=== PATIENT | male | born 1965 | race African-American/Black ===

== ENCOUNTER 2020-10-25 14:39 | Inpatient (IN) | payer MEDICAID ==
[~2020-10-25] VITALS: Ht 170.2 cm; Wt 81.2 kg
[2020-10-25] MEDS ORDERED: ONDANSETRON HCL/PF 4 MG/2 ML VIAL ONE (14:47)
--- NOTE | 2020-10-25 14:56 | NUR ---
BIBRA99, PER EMS, NOTICE SEIZURE LIKE ACTIVITY WHILE DRIVING. +NAUSEA RIPPER OPERATOR VERBALLY RESPONSIVE, AWAKE RIPPER OPERATOR. BG 208 RIPPER OPERATOR. PT AAOX4, VSS. RR EVEN & UNLABORED. DENIES CP, SOB, DIZZINESS, PRETTY AT THIS TIME. PT SEEN & EVAL'D BY DR. KATE. MEDICATED ORDERED, PT BRIAN WELL. PLACED ON SEIZURE PRECAUTION & WILL CONT TO MONITOR.
[2020-10-25] MEDS ORDERED: ONDANSETRON HCL/PF 4 MG/2 ML VIAL IVP ONE (15:00)
[2020-10-25] MEDS ORDERED: IV NS 0.9% 1,000 ML BAG IV ONE (15:00)
[2020-10-25 15:25] LABS: BASOPHILS % (AUTO) 0.5 % (0.0-2.0); EOSINOPHILS % (AUTO) 0.1 % (0.0-6.0); HEMATOCRIT 34 % (39-51); HEMOGLOBIN 11.3 g/dL (13.5-17.5); LYMPHOCYTES # (AUTO) 0.5 /CMM (0.8-4.8); LYMPHOCYTES % (AUTO) 7.4 % (20.0-44.0); MEAN CORPUSCULAR HGB CONC 34 g/dl (31.0-36.0); MEAN CORPUSCULAR VOLUME 88 fL (80-96); MONOCYTES # (AUTO) 1.2 /CMM (0.1-1.30); MONOCYTES % (AUTO) 19.2 % (2.0-12.0); NEUTROPHILS # (AUTO) 4.4 /CMM (1.8-8.9); NEUTROPHILS % (AUTO) 72.8 % (43.0-81.0); PLATELET COUNT (AUTO) 151 /CMM (150-450); RED BLOOD CELL COUNT(AUTO) 3.84 MIL/uL (4.5-6.0)
[2020-10-25 15:41] LABS: ALANINE AMINOTRANSFERASE 83 U/L (12-78); ALBUMIN 3.6 g/dL (3.4-5.0); ALCOHOL, BLOOD < 3 mg/dL (0-0); ALKALINE PHOSPHATASE 66 U/L (46-116); ASPARTATE AMINOTRANSFERASE 114 U/L (15-37); BILIRUBIN,DIRECT 0.5 mg/dL (0.0-0.2); BILIRUBIN,TOTAL 1.2 mg/dL (0.2-1.0); CALCIUM, SERUM 9.1 mg/dL (8.5-10.1); CARBON DIOXIDE 29 mmol/L (21-32); CHLORIDE 81 mmol/L (98-107); CREATININE 4.7 mg/dL (0.6-1.3); GLUCOSE 246 mg/dL (74-106); SODIUM SERUM 126 mmol/L (136-145); TOTAL PROTEIN, SERUM 7.4 g/dL (6.4-8.2); UREA NITROGEN, BLOOD 34 mg/dL (7-18)
[2020-10-25 15:43] LABS: POTASSIUM 2.6 mmol/L (3.5-5.1)
[2020-10-25] MEDS ORDERED: POTASSIUM CHLORIDE 20 MEQ TAB.PRT.SR PO ONE ×2 (16:00→16:08)
[2020-10-25] MEDS ORDERED: IV NS 0.9% 500 ML BAG IV ONE (16:00)
[2020-10-25 16:08] LABS: BAND % (MANUAL) 4 % (0.0-5.0); LYMPHOCYTES % (MANUAL) 14 % (16-48); MONOCYTES % (MANUAL) 15 % (0-11.0); NEUTROPHILS % (MANUAL) 67 (42-76)
--- NOTE | 2020-10-25 16:11 | NUR ---
PAGED DR. ASHISH BOWERS.
--- NOTE | 2020-10-25 16:15 | NUR ---
NURSING SUP GAVE [phone] TELE.
--- NOTE | 2020-10-25 16:16 | NUR ---
Covid swab done and taken it to the lab.
--- NOTE | 2020-10-25 16:23 | NUR ---
PT AAOX4, RR EVEN & UNLABORED. DENIES ANY DISCOMFORT AT THIS TIME. WILL CONT TO MONITOR.
[2020-10-25] MEDS ORDERED: Z GUARD REMEDY 2 OZ OINT TP PRN (16:30)
[2020-10-25] MEDS ORDERED: ONDANSETRON HCL/PF 4 MG/2 ML VIAL IVP PRN (16:30)
[2020-10-25] MEDS ORDERED: DEXTROSE 50%-WATER 50 ML DISP.SYRIN IV PRN (16:30)
[2020-10-25] MEDS ORDERED: IV 1/2NS 1000 ML 1,000 ML IV PRN (16:30)
[2020-10-25] MEDS ORDERED: ACETAMINOPHEN 325 MG TABLET PO PRN (16:30)
[2020-10-25] MEDS ORDERED: ZOLPIDEM TARTRATE 5 MG TABLET PO PRN (16:30)
--- NOTE | 2020-10-25 16:35 | NUR ---
REPORT GIVEN TO KORIN MCKEON. PT AWAITING TRANSFER TO FLOOR
[2020-10-25] MEDS ORDERED: ATOR40TA PO (17:20)
[2020-10-25] MEDS ORDERED: LOSA50TA39 PO (17:20)
[2020-10-25] MEDS ORDERED: CLON1TAB23 PO (17:20)
[2020-10-25] MEDS ORDERED: BUSPAR (17:20)
[2020-10-25] MEDS ORDERED: ESCI10TA PO (17:20)
--- NOTE | 2020-10-25 17:20 | NUR ---
CONCRETE BATCHING PLANT OPERATORPROCESS DEVELOPMENT CHEMIST NOTE PT ARRIVED ON UNIT VIA GURNEY ACCOMPANIED BY 2 ER NURSES. PT IS A/O X4, TAMAZIGHT SPEAKING, VERBAL, ABLE TO MAKE NEEDS KNOWN WITH NO C/O PAIN OR S/SX OF ACUTE DISTRESS AT THIS TIME. PT IS ON ROOM AIR WITH NO S/SX OF RESPIRATORY DISTRESS. PT'S TELE MONITOR SHOWS SINUS TACHY AT 105 BPM, BUT IN NO APPARENT CARDIAC DISTRESS. PT C/O HICCUPS, CALLED TO DR. GUTIERREZ WITH ORDERS TO ADMINISTER ZOFRAN IVP PRN, CARRIED OUT. ORIENTED TO UNIT AND ROOM, WITH SUCCESSFUL RETURN DEMONSTRATION AND VERBALIZATION OF UNDERSTANDING. SAFETY MEASURES IN PLACE: BED IN LOWEST, LOCKED POSITION WITH BOTH UPPER SIDE RAILS UP X2. CALL LIGHT PLACED WITHIN REACH. EDUCATED ON IMPORTANCE OF USING CALL LIGHT. WILL CONTINUE TO MONITOR.
[2020-10-25] MEDS: BLOOD SUGAR DIAGNOSTIC 1 EACH STRIP IN SCH ×2 (17:54→21:45)
[2020-10-25 18:00] VITALS: BP 131/81
[2020-10-25] MEDS: INSULIN REGULAR, HUMAN 100 UNIT/ML 3 ML VIAL SQ PRN ×2 (18:25→21:46)
--- NOTE | 2020-10-25 19:08 | NUR ---
MACHINE HEEL SEAT LASTER CLOSING NOTE PT IS IN ROOM, AWAKE, RESPONSIVE. PT IS A/O X4, SINHALA SPEAKING, VERBAL, ABLE TO MAKE NEEDS KNOWN WITH NO C/O PAIN OR S/SX OF ACUTE DISTRESS AT THIS TIME. PT IS ON ROOM AIR WITH NO S/SX OF RESPIRATORY DISTRESS. PT'S TELE MONITOR SHOWS SINUS TACHY AT 100 BPM, BUT IN NO APPARENT CARDIAC DISTRESS. SAFETY MEASURES MAINTAINED: BED IN LOWEST POSITION AND LOCKED WITH BOTH UPPER SIDE RAILS UP X2. CALL LIGHT PLACED WITHIN REACH. WILL ENDORSE TO CONTACT CENTER ENGINEER NURSE.
[2020-10-25 20:00] VITALS: BP 133/66
--- NOTE | 2020-10-25 20:00 | NUR ---
CONSTRUCTION LABORER NOTE PT IN BED AWAKE. A/O X 4, NO SOB, NO DISTRESS OR DISCOMFORT NOTED. DENIES PAIN. IVF 1/2 NS INFUSING AT 75 ML/HR, NO S/S OF INFILTRATION NOTED. RT HAND G #20. ON TELE SR HR 98. SIDE RAILS UP X 2 AND CALL LIGHT WITHIN REACH. VSS. CONTINUE TO MONITOR HIM.
[2020-10-25 22:50] LABS: BILIRUBIN,URINE MODERATE (NEGATIVE); COLOR,URINE YELLOW (YELLOW); LEUKOCYTE ESTERASE ,URINE NEGATIVE (NEGATIVE); NITRITE, URINE NEGATIVE (NEGATIVE); PROTEIN,URINE 30 mg/dl (NEGATIVE); UGLUCOSE NEGATIVE (NEGATIVE); UROBILINOGEN,URINE 0.2 EU/dL (0.2)
[2020-10-25 23:02] LABS: ALBUMIN 3.1 g/dL (3.4-5.0); CALCIUM, SERUM 8.3 mg/dL (8.5-10.1); CREATININE 3.6 mg/dL (0.6-1.3); TOTAL PROTEIN, SERUM 6.6 g/dL (6.4-8.2)
[2020-10-25 23:03] LABS: CREATININE, URINE 121.2 MG/DL (30.0-125.0); URINE TOTAL PROTEIN 70.7 mg/dL (0-11.9)
[2020-10-25 23:12] LABS: POTASSIUM 2.3 mmol/L (3.5-5.1)
[2020-10-25 23:57] LABS: BACTERIA,URINE None seen /HPF (None Seen); RBC,URINE 0-2 /HPF (0-2); SQUAMOUS EPITHELIAL CELL,UR Few /HPF (None Seen); WBC,URINE 0-2 /HPF (0-3)
[2020-10-26] VITALS (7 sets, daily range): BP systolic 126–172; BP diastolic 72–98
--- NOTE | 2020-10-26 03:00 | NUR ---
GIS GEOGRAPHER NOTE NOTED K 2.3 AND NA 129 LEVEL, INFORMED DNP JOCE CARMEN, RECEIVED NEW ORDERS, ORDERS NOTED AND CARRIED OUT.
[2020-10-26] MEDS ORDERED: Potassium Chloride 40 MEQ in IV NS 0.9% 1,000 ML IV PRN (03:30)
[2020-10-26] MEDS ORDERED: POTASSIUM CHLORIDE 10 MEQ/50 ML PREMIXED IVPB FOR PERIPHERAL LINE IV ONE (03:30)
[2020-10-26] MEDS: POTASSIUM CL. PREMIX PERIPHER. 50 ML IV SCH ×4 (03:42→07:44)
[2020-10-26] MEDS ORDERED: IV PREMIX NS +20MEQ KCL 1 L IV ONE (05:16)
[2020-10-26] MEDS: Potassium Chloride 20 MEQ in IV NS 0.9% 1,000 ML IV PRN ×2 (05:24→21:53)
[2020-10-26 05:58] LABS: BASOPHILS % (AUTO) 0.5 % (0.0-2.0); EOSINOPHILS % (AUTO) 0.5 % (0.0-6.0); HEMATOCRIT 34 % (39-51); HEMOGLOBIN 11.6 g/dL (13.5-17.5); LYMPHOCYTES # (AUTO) 0.5 /CMM (0.8-4.8); LYMPHOCYTES % (AUTO) 11.1 % (20.0-44.0); MEAN CORPUSCULAR HGB CONC 34 g/dl (31.0-36.0); MEAN CORPUSCULAR VOLUME 88 fL (80-96); MONOCYTES % (AUTO) 20.5 % (2.0-12.0); NEUTROPHILS # (AUTO) 3.3 /CMM (1.8-8.9); NEUTROPHILS % (AUTO) 67.4 % (43.0-81.0); PLATELET COUNT (AUTO) 180 /CMM (150-450); RED BLOOD CELL COUNT(AUTO) 3.93 MIL/uL (4.5-6.0); WHITE BLOOD COUNT (AUTO) 4.9 K/uL (4.3-11.0)
[2020-10-26] MEDS: BLOOD SUGAR DIAGNOSTIC 1 EACH STRIP IN SCH ×4 (06:20→21:45)
[2020-10-26] MEDS: INSULIN REGULAR, HUMAN 100 UNIT/ML 3 ML VIAL SQ PRN ×4 (06:22→21:50)
--- NOTE | 2020-10-26 06:31 | NUR ---
FEATHER MIXER NOTE PT IN BED ASLEEP, EASILY AROUSABLE, NO DISTRESS OR DISCOMFORT NOTED. DENIES PAIN. IVF NS WITH 20 MEQ KCL INFUSING WELL. NO S/S OF INFILTRATION NOTED. ALSO INFUSING 10 MEQ KCL IVP ORDERED. SIDE RAILS UP X 2 AND CALL LIGHT WITHIN REACH. WILL ENDORSE TO DAY SHIFT NURSE FOR CONTINUE TO CARE.
[2020-10-26 06:55] LABS: ALBUMIN 2.9 g/dL (3.4-5.0); BILIRUBIN,TOTAL 0.9 mg/dL (0.2-1.0); CALCIUM, SERUM 7.8 mg/dL (8.5-10.1); CREATININE 2.9 mg/dL (0.6-1.3); MAGNESIUM 1.4 mg/dL (1.8-2.4); PHOSPHORUS 3.8 mg/dL (2.5-4.9); TOTAL PROTEIN, SERUM 6.5 g/dL (6.4-8.2)
[2020-10-26 06:56] LABS: THYROID STIMULATING HORMONE 0.277 uIU/mL (0.358-3.74)
--- NOTE | 2020-10-26 07:05 | NUR ---
UNIT MANAGER RN NOTE RECEIVED PATIENT AWAKE IN BED. A/O X4. PT STABLE ON ROOM AIR. NO SOB NOTED. NO S/S OF RESPIRATORY DISTRESS. PATIENT IS AMBULATORY WITH BRP. PATIENT HAS NO C/O PAIN AT THIS TIME. IV ACCESS ON LEFT AC 22G, NS WITH 20 MEQ KCL INFUSING WELL. IV IS INTACT AND PATENT. SAFETY MEASURES MAINTAINED. BED IN LOWEST LOCKED POSITION. SIDE RAILS UP X2. CALL LIGHT AND TABLE WITHIN REACH. WILL CONTINUE WITH PLAN OF CARE.
[2020-10-26 07:08] LABS: POTASSIUM 2.6 mmol/L (3.5-5.1)
[2020-10-26] MEDS: PANTOPRAZOLE 40 MG TABLET.DR PO SCH (07:43)
[2020-10-26 08:17] LABS: EOSINOPHILS % (MANUAL) 1 % (0-4); LYMPHOCYTES % (MANUAL) 10 % (16-48); MONOCYTES % (MANUAL) 16 % (0-11.0); NEUTROPHILS % (MANUAL) 73 (42-76)
[2020-10-26] MEDS ORDERED: Magnesium 1GM/D5W 100ML PREMIX 100 ML IV SCH (09:30)
[2020-10-26] MEDS: HYDROCODONE/APAP 5/325MG TABLET PO PRN ×2 (13:34→20:42)
--- NOTE | 2020-10-26 13:34 | NUR ---
PATIENT C/O TIGHTNESS IN THE BACK OF THE NECK, RATED 6/10 ON PAIN SCALE. PATIENT WAS GRASPING SITE AND HAD FACIAL GRIMACING. VS BP 154/90, HR 87, RR 18, TEMP 98.7, O2 SAT 99%. PER PATIENT REQUEST, ADMINISTERED NORCO 3-325 MG PO Q4H PRN AT THIS TIME. WILL CONTINUE TO MONITOR.
--- NOTE | 2020-10-26 18:26 | NUR ---
AVIATION TECHNICIAN AIRCRAFT CLOSING NOTE PATIENT IS AWAKE IN BED AT THIS TIME. PATIENT REMAINED STABLE THROUGHOUT SHIFT. ALL CARE, NEEDS, MEDICATIONS, AND TREATMENT ADMINISTERED ANTICIPATED PER ORDER. PATIENT KEPT CLEAN AND DRY. PAIN MANAGEMENT ADMINISTERED PER ORDER. SAFETY, SEIZURE, AND ASPIRATION PRECAUTIONS MAINTAINED AT ALL TIMES. BED IN LOWEST LOCKED POSITION WITH BED ALARM ON, SIDE RAILS PADDED AND UP X2. HOB ELEVATED. CALL LIGHT AND TABLE WITHIN REACH. WILL ENDORSE TO PAYROLL ACCOUNTANT NURSE FOR KARMEN.
--- NOTE | 2020-10-26 19:30 | NUR ---
EQUAL OPPORTUNITY REPRESENTATIVE OPENING NOTE RECEIVED PATIENT IN BED. A/OX4. TOLERATING ROOM AIR. RESPIRATIONS ARE EVEN AND UNLABORED. NO S/S SOB NOTED. NO C/O PAIN AT THIS TIME. EXTERNAL TELE MONITOR READS SINUS RHYTHM HR 87. IN NO APPARENT DISTRESS. IV ACCESS IN LAC#22 RUNNING 20MEQ POTASSIUM WITH NS@75ML/HR. BED IS LOW AND LOCKED, HOB ELEVATED IN HIGH FOWLERS, SIDE RIALS UP X2, CALL LIGHT WITHIN REACH. BED ALARM ON. WILL CONTINUE TO MONITOR THROUGHOUT SHIFT.
--- NOTE | 2020-10-26 20:00 | NUR ---
telecommunications network planner note informed air traffic control manager MD Dr. nikhil etienne to review patients med recon. stated yes. will monitor.
--- NOTE | 2020-10-26 20:35 | NUR ---
telephone interceptor operator note INFORMED DR. JOCE CARMEN THAT PATIENT BP IS 172/98. NO PRN ORDERS. PATIENTS MED RECON STATES LOSARTAN 50MG PO DAILY. TELEPHONE ORDER OK TO RESTART. ORDER READ BACK NOTED AND CARRIED OUT.
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
[2020-10-26] MEDS: LOSARTAN POTASSIUM 50 MG TABLET PO SCH (21:44)
[2020-10-27] VITALS: BP 134/82
[2020-10-27 04:00] VITALS: BP 149/93
[2020-10-27] MEDS: BLOOD SUGAR DIAGNOSTIC 1 EACH STRIP IN SCH ×5 (06:16→21:39)
[2020-10-27] MEDS: INSULIN REGULAR, HUMAN 100 UNIT/ML 3 ML VIAL SQ PRN ×3 (06:17→17:50)
[2020-10-27 06:39] LABS: EOSINOPHILS % (AUTO) 2.2 % (0.0-6.0); HEMATOCRIT 35 % (39-51); HEMOGLOBIN 11.7 g/dL (13.5-17.5); LYMPHOCYTES # (AUTO) 0.7 /CMM (0.8-4.8); LYMPHOCYTES % (AUTO) 18.2 % (20.0-44.0); MEAN CORPUSCULAR HGB CONC 33 g/dl (31.0-36.0); MEAN CORPUSCULAR VOLUME 89 fL (80-96); MONOCYTES # (AUTO) 0.9 /CMM (0.1-1.30); MONOCYTES % (AUTO) 22.9 % (2.0-12.0); NEUTROPHILS # (AUTO) 2.2 /CMM (1.8-8.9); NEUTROPHILS % (AUTO) 55.7 % (43.0-81.0); PLATELET COUNT (AUTO) 224 /CMM (150-450); RED BLOOD CELL COUNT(AUTO) 3.96 MIL/uL (4.5-6.0)
--- NOTE | 2020-10-27 06:41 | NUR ---
SEAFOOD TEAM MEMBER CLOSING NOTE PATIENT RESTING IN BED. A/OX4. REMAINS TOLERATING ROOM AIR. NO RESP DISTRESS. NO C/O PAIN. TELE MONITOR READS SINUS RHYTHM. NO DISTRESS. IV ACCESS MAINTAINED IN LAC#22 RUNNING 20MEQ POTASSIUM WITH NS@75ML/HR. BED REMAINS LOW AND LOCKED, HOB ELEVATED IN HIGH FOWLERS, SIDE RIALS UP X2, CALL LIGHT WITHIN REACH. BED ALARM ON. WILL ENDORSE TO ONCOMING SHIFT.
[2020-10-27 07:22] LABS: ALBUMIN 2.8 g/dL (3.4-5.0); BILIRUBIN,TOTAL 0.8 mg/dL (0.2-1.0); CALCIUM, SERUM 7.8 mg/dL (8.5-10.1); CREATININE 1.7 mg/dL (0.6-1.3); MAGNESIUM 1.5 mg/dL (1.8-2.4); PHOSPHORUS 2.7 mg/dL (2.5-4.9); POTASSIUM 2.9 mmol/L (3.5-5.1); TOTAL PROTEIN, SERUM 6.5 g/dL (6.4-8.2)
--- NOTE | 2020-10-27 07:29 | NUR ---
BOILERMAKER FITTER OPENING NOTE RECEIVED PATIENT IN BED. A/OX4. TOLERATING ROOM AIR. RESPIRATIONS ARE EVEN AND UNLABORED. NO S/S SOB NOTED. NO C/O PAIN AT THIS TIME. EXTERNAL TELE MONITOR READS SINUS RHYTHM HR 87. IN NO APPARENT DISTRESS. IV ACCESS IN LAC#22 RUNNING 20MEQ POTASSIUM WITH NS@75ML/HR. BED IS LOW AND LOCKED, HOB ELEVATED IN HIGH FOWLERS, SIDE RIALS UP X2, CALL LIGHT WITHIN REACH. BED ALARM ON.
[2020-10-27 08:00] VITALS: BP 166/94
[2020-10-27] MEDS: PANTOPRAZOLE 40 MG TABLET.DR PO SCH (08:05)
[2020-10-27] MEDS: LOSARTAN POTASSIUM 50 MG TABLET PO SCH (08:05)
[2020-10-27] MEDS: HYDROCODONE/APAP 5/325MG TABLET PO PRN (08:24)
[2020-10-27 08:41] LABS: EOSINOPHILS % (MANUAL) 1 % (0-4); LYMPHOCYTES % (MANUAL) 20 % (16-48); MONOCYTES % (MANUAL) 19 % (0-11.0); NEUTROPHILS % (MANUAL) 60 (42-76)
--- NOTE | 2020-10-27 09:50 | NUR ---
RN NOTES PATIENT SEEN BY SYDNIE RODRIGUES TO D/C FROM TELE. WILL CONTINUE TO MONITOR.
[2020-10-27] MEDS ORDERED: Magnesium 1GM/D5W 100ML PREMIX 100 ML IV SCH (11:00)
[2020-10-27] MEDS: POTASSIUM CHLORIDE 20 MEQ TAB.PRT.SR PO SCH ×2 (11:06→12:06)
[2020-10-27] MEDS: AMLODIPINE BESYLATE 5 MG TABLET PO SCH (12:32)
[2020-10-27 16:00] VITALS: BP 158/83
--- NOTE | 2020-10-27 18:42 | NUR ---
CARAVAN PARK AND CAMPING GROUND MANAGER CLOSING NOTE PATIENT RESTING IN BED. A/OX4. REMAINS TOLERATING ROOM AIR. NO RESP DISTRESS. NO C/O PAIN. TELE MONITOR READS SINUS RHYTHM. NO DISTRESS. IV ACCESS MAINTAINED IN LAC#22 RUNNING 20MEQ POTASSIUM WITH NS@75ML/HR. BED REMAINS LOW AND LOCKED, HOB ELEVATED IN HIGH FOWLERS, SIDE RIALS UP X2, CALL LIGHT WITHIN REACH. BED ALARM ON.
--- NOTE | 2020-10-27 19:30 | NUR ---
TELE/RN OPENING NOTE RECEIVED PATIENT RESTING IN BED. AWAKE, ALERT AND ORIENTED X 4. ABLE TO MAKE NEEDS KNOWN. NO COMPLAINTS OF PAIN AT THIS TIME. RESPIRATIONS EVEN AND UNLABORED. IV ACCESS TO LEFT AC #22G INTACT AND PATENT. CONTINUES ON IV POTASSIUM 20MEQ IN 1,000ML NS @ 75ML/HR. URINE CX PENDING AT THIS TIME. CALL LIGHT WITHIN REACH. ASPIRATION, FALL AND SAFETY PRECAUTIONS MAINTAINED. WILL CONTINUE TO MONITOR.
[2020-10-27 20:00] VITALS: BP 168/96
[2020-10-27] MEDS ORDERED: IV PREMIX NS +20MEQ KCL 1 L IV ONE (21:12)
[2020-10-27] MEDS: Potassium Chloride 20 MEQ in IV NS 0.9% 1,000 ML IV PRN (21:27)
--- NOTE | 2020-10-27 22:00 | NUR ---
TELE/RN NOTE PATIENT REFUSED HS BLOOD GLUCOSE CHECK. STATES IT'S BEEN TAKEN TOO MANY TIMES AND DOESN'T NEED TO BE DONE AGAIN TONIGHT. EDUCATED PATIENT ON IMPORTANCE OF MONITORING GLUCOSE LEVEL WITH PATIENT CONTINUING TO REFUSE. WILL CONTINUE TO MONITOR.
--- NOTE | 2020-10-28 06:45 | NUR ---
MS/RN CLOSING NOTE PATIENT CURRENTLY RESTING IN BED. AWAKE, ALERT AND ORIENTED X 4. ABLE TO MAKE NEEDS KNOWN. NO COMPLAINTS OF PAIN AT THIS TIME. RESPIRATIONS EVEN AND UNLABORED. IV ACCESS TO LEFT AC #22G INTACT AND PATENT. CONTINUES ON IV POTASSIUM 20MEQ IN 1,000ML NS @ 75ML/HR. URINE CX PENDING AT THIS TIME. CALL LIGHT WITHIN REACH. ASPIRATION, FALL AND SAFETY PRECAUTIONS MAINTAINED. WILL ENDORSE PLAN OF CARE TO ONCOMING SHIFT.
[2020-10-28 06:54] LABS: BASOPHILS % (AUTO) 0.6 % (0.0-2.0); EOSINOPHILS % (AUTO) 1.8 % (0.0-6.0); HEMATOCRIT 38 % (39-51); HEMOGLOBIN 12.7 g/dL (13.5-17.5); LYMPHOCYTES # (AUTO) 0.8 /CMM (0.8-4.8); LYMPHOCYTES % (AUTO) 15.5 % (20.0-44.0); MEAN CORPUSCULAR HGB CONC 33 g/dl (31.0-36.0); MEAN CORPUSCULAR VOLUME 89 fL (80-96); MONOCYTES # (AUTO) 1.4 /CMM (0.1-1.30); MONOCYTES % (AUTO) 27.7 % (2.0-12.0); NEUTROPHILS # (AUTO) 2.8 /CMM (1.8-8.9); NEUTROPHILS % (AUTO) 54.4 % (43.0-81.0); PLATELET COUNT (AUTO) 304 /CMM (150-450); WHITE BLOOD COUNT (AUTO) 5.1 K/uL (4.3-11.0)
[2020-10-28] MEDS: INSULIN REGULAR, HUMAN 100 UNIT/ML 3 ML VIAL SQ PRN ×2 (07:07→11:15)
[2020-10-28] MEDS: BLOOD SUGAR DIAGNOSTIC 1 EACH STRIP IN SCH ×2 (07:14→11:15)
[2020-10-28 07:46] LABS: CALCIUM, SERUM 8.7 mg/dL (8.5-10.1); CREATININE 1.3 mg/dL (0.6-1.3); MAGNESIUM 1.5 mg/dL (1.8-2.4); PHOSPHORUS 2.1 mg/dL (2.5-4.9); POTASSIUM 3.4 mmol/L (3.5-5.1)
--- NOTE | 2020-10-28 07:53 | NUR ---
MS RN OPENING NOTE PT RECEIVED IN BED, AWAKE AND RESPONSIVE. PT IS A/O X 4, VERBAL, LATVIAN SPEAKING AND ABLE TO MAKE NEEDS KNOWN WITH NO C/O PAIN OR S/SX OF ACUTE DISTRESS AT THIS TIME. PT IS ON ROOM AIR WITH NO S/SX OF RESPIRATORY DISTRESS. PT HAS AN IV ACCESS ON LEFT FOREARM G#22, PATENT, INTACT AND FLUSHING WELL, RUNNING 20 MEQ K+ WITH NS AT 75 ML/HR, WITH NO S/SX OF INFECTION, INFILTRATION OR IRRITATION. PT IS AMBULATORY WITH STEADY GAIT AND IS ABLE TO GO TO THE BATHROOM INDEPENDENTLY. SAFETY MEASURES IN PLACE: BED IN LOWEST, LOCKED POSITION WITH BOTH UPPER SIDE RAILS UP X2. CALL LIGHT PLACED WITHIN REACH. WILL CONTINUE TO MONITOR.
[2020-10-28 08:00] VITALS: BP 173/96
[2020-10-28] MEDS: PANTOPRAZOLE 40 MG TABLET.DR PO SCH (08:05)
[2020-10-28 08:06] VITALS: BP 173/96
[2020-10-28] MEDS: LOSARTAN POTASSIUM 50 MG TABLET PO SCH (08:06)
[2020-10-28] MEDS: AMLODIPINE BESYLATE 5 MG TABLET PO SCH (08:06)
[2020-10-28] MEDS: HYDROCODONE/APAP 5/325MG TABLET PO PRN (08:09)
--- NOTE | 2020-10-28 08:15 | NUR ---
MS MCKEON NOTE: PAIN PT C/O ACHING LOWER NECK PAIN RATED 6/10. NORCO 5-325 1 TAB PO Q4H PRN GIVEN AT 08 PER PT'S REQUEST. WILL CONTINUE TO MONITOR. Addendum: 10/28/20 at 0910 by MIRIAM COATES RN REASSESSED PAIN AT 0909, 0/10.
--- NOTE | 2020-10-28 08:30 | NUR ---
MS RN NOTE: HTN PT NOTED WITH HIGH BP AT 173/96 WITH NO S/SX OF ACUTE DISTRESS. PT STATED "THAT'S NORMAL FOR ME." ROUTINE PO HTN MEDICATION LOSARTAN 50 MG PO QD AND AMLODIPINE 5 MG PO QD GIVEN TO PT AT 0800 ORDERED. RECHECKED BP AFTER 30 MINS AT 0830BP IS CURRENTLY 130/94 WITH NO S/SX OF ACUTE DISTRESS AT THIS TIME. WILL CONTINUE TO MONITOR.
[2020-10-28 09:23] LABS: EOSINOPHILS % (MANUAL) 1 % (0-4); LYMPHOCYTES % (MANUAL) 21 % (16-48); MONOCYTES % (MANUAL) 28 % (0-11.0); NEUTROPHILS % (MANUAL) 50 (42-76)
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
--- NOTE | 2020-10-28 11:16 | NUR ---
MS RN NOTE: MEDICATION REFUSAL CHECKED PT'S BLOOD SUGAR. BLOOD SUGAR WAS 142. INSULIN 2 UNIT TO BE ADMINISTERED. PT REFUSED INSULIN. EXPLAINED RISKS AND BENEFITS TO PT. OFFERED MEDICATION X 3, STILL REFUSED. WILL CONTINUE TO MONITOR.
[2020-10-28] MEDS ORDERED: MAGNESIUM OXIDE 400 MG TABLET PO SCH (11:30)
[2020-10-28] MEDS ORDERED: MAGNESIUM OXIDE 400 MG TABLET PO ONE (11:30)
[2020-10-28 11:45] LABS: *SPE A/G RATIO 1.1 (0.7-1.7); *SPE ALPHA-1-GLOBULIN 0.3 g/dL (0.0-0.4); *SPE ALPHA-2-GLOBULIN 1.1 g/dL (0.4-1.0); *SPE BETA GLOBULIN 0.9 g/dL (0.7-1.3); *SPE GLOBULIN, TOTAL 2.8 g/dL (2.2-3.9); *SPE M-SPIKE Not Observed g/dL (Not Observed); *SPEGAMMA GLOBULIN 0.6 g/dL (0.4-1.8); PTH, INTACT 82 pg/mL (15-65)
[2020-10-28] MEDS ORDERED: K PHOS NEUTRAL 250 MG TABLET PO ONE (12:30)
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
== END 2020-10-28 13:00 | disposition left against medical advice (07) | DRG 53 ==
LOC: ER 14:40 → TELE 16:21 → MED 10-27 08:58
DX: R56.9 Unspecified convulsions (principal); N17.0 Acute kidney failure with tubular necrosis; R55 Syncope and collapse; E87.1 Hypo-osmolality and hyponatremia; E87.6 Hypokalemia; E78.5 Hyperlipidemia, unspecified; E83.42 Hypomagnesemia; E86.0 Dehydration; F43.10 Post-traumatic stress disorder, unspecified; I10 Essential (primary) hypertension; K76.0 Fatty (change of) liver, not elsewhere classified; Z20.822 Contact with and (suspected) exposure to COVID-19; Z59.0 Homelessness; E11.65 Type 2 diabetes mellitus with hyperglycemia; R74.01 Elevation of levels of liver transaminase levels; E80.6 Other disorders of bilirubin metabolism; E86.1 Hypovolemia; V89.2XXA Person injured in unspecified motor-vehicle accident, traffic, initial encounter; Y92.410 Unspecified street and highway as the place of occurrence of the external cause
CPT/HCPCS: 36415; 70450-TC; 71045-TC; 76705-TC; 76770-TC; 80048-TC; 80053-TC; 80061-TC; 80076-TC; 81001; 82550-TC; 82553; 82570-TC; 82962-TC; 83735-TC; 83970; 84100-TC; 84155; 84155-TC; 84165; 84300-TC; 84443-TC; 84484-TC; 85025-TC; 85730-TC; 87081-TC; 87086-TC; 93307-TC; 97110-TC; 97116-TC; 97530-TC; G0378; G0480; J1815; J2405; J3475; J3480; J3490; J7030; J7040